=== PATIENT | male | born 1980 | race Caucasian/White ===

== ENCOUNTER 2025-03-20 22:39 | Emergency (ER) | payer SELFPAY ==
[~2025-03-20] VITALS: Ht 177.8 cm; Wt 90.0 kg
[2025-03-20 22:48] VITALS: O2SAT 100
[2025-03-20] MEDS: TETANUS, DIPHTHERIA, PERTUSSIS VAC/PF 0.5ML (>10YR OLD) IM ONE (23:54)
[2025-03-20] MEDS: KETOROLAC 15MG/ML VIAL IM ONE (23:57)
[2025-03-21] MEDS ORDERED: NAPR-681 MT (00:31)
[2025-03-21] MEDS ORDERED: BO1 TP (00:31)
[2025-03-21 00:46] VITALS: BP 120/76; PULSE 81; RESP 16; TEMP 36.8; O2SAT 100
== END 2025-03-21 00:46 | disposition home or self-care (01) ==
LOC: ER 22:39
DX: S81.801A Unspecified open wound, right lower leg, initial encounter (principal); M79.18 Myalgia, other site; Z79.1 Long term (current) use of non-steroidal anti-inflammatories (NSAID); W18.39XA Other fall on same level, initial encounter; Y93.89 Activity, other specified; Y92.89 Other specified places as the place of occurrence of the external cause; Y99.8 Other external cause status
CPT/HCPCS: 99284; 73590; 90715; 90471; 96372; J1885